=== PATIENT | female | born 1950 | race Caucasian/White ===

== ENCOUNTER 2016-10-22 07:47 | Emergency (ER) | payer BC ==
--- NOTE | 2016-10-22 08:09 | UC ---
Complaint Female HPI - HPI Summary HPI Summary: 65 yo female with the onset 4 days ago of her typical UTI symptoms dysuria(terminal)/urgency and frequency no vag d/c or itch no back or belly pain no fever - History Of Current Complaint Chief Complaint: [facility] Stated Complaint: URINARY COMPLAINT Time Seen by Provider: 10/22/16 07:54 Hx Obtained From: Patient Onset/Duration: Gradual Onset Timing: Lasting Seconds Severity Initially: Mild Severity Currently: None Pain Intensity: 0 - discomfort only with urination Pain Scale Used: 0-10 Numeric Character: Burning Aggravating Factor(s): Urination Related Hx: Similar Episode/Dx as: - UTI - Allergies/Home Medications Allergies/Adverse Reactions: Allergies Allergy/AdvReac Type Severity Reaction Status Date / Time No Known Allergies Allergy Verified 10/22/16 07:52 Home Medications: Home Medications glipiZIDE TAB* [Glucotrol TAB*] 20 mg PO DAILY 10/22/16 [History Confirmed 10/22] metFORMIN* [Glucophage*] 500 mg PO DAILY 10/22/16 [History Confirmed 10/22/16] PMH/Surg Hx/FS Hx/Imm Hx Previously Healthy: Yes - hx pyelo x 1 Endocrine History Of: Reports: Diabetes, Thyroid Disease Cardiovascular History Of: Reports: Hypertension - Surgical History Surgical History: Yes Surgery Procedure, Year, and Place: BILATERAL FOOT REPAIR - Family History Known Family History: Positive: Hypertension - Social History Alcohol Use: Occasionally Substance Use Type: None Smoking Status (MU): Never Smoked Tobacco Review of Systems Constitutional: Negative Skin: Negative Eyes: Negative ENT: Negative Respiratory: Negative Cardiovascular: Negative Gastrointestinal: Negative Genitourinary: Dysuria, Frequency, Urgency Motor: Negative Neurovascular: Negative Musculoskeletal: Negative Neurological: Negative Psychological: Negative All Other Systems Reviewed And Are Negative: Yes Physical Exam Triage Information Reviewed: Yes Appearance: Well-Appearing, No Pain Distress, Well-Nourished Vital Signs: Initial Vital Signs Temp 97.6 F 10/22/16 07:55 Pulse 76 10/22/16 07:55 Resp 18 10/22/16 07:55 BP 99/49 10/22/16 07:55 Pulse Ox 97 10/22/16 07:55 Eye Exam: Normal Eyes: Positive: Conjunctiva Clear ENT: Positive: Hearing grossly normal. Negative: Nasal congestion, Nasal drainage, Trismus, Muffled/hoarse voice Neck: Positive: Supple, Nontender Respiratory: Positive: Lungs clear, Normal breath sounds, No respiratory distress Cardiovascular: Positive: RRR, No Murmur, Pulses Normal Abdomen Description: Positive: Nontender, No Organomegaly, Soft. Negative: CVA Tenderness (R), CVA Tenderness (L) Bowel Sounds: Positive: Present Musculoskeletal: Positive: ROM Intact, No Edema Neurological: Positive: Alert Psychological Exam: Normal Skin Exam: Normal Complaint Female Dx - Differential Dx/Diagnosis Provider Diagnoses: dysuria of uncertain cause. ?UTI Discharge - Discharge Plan Condition: Stable Disposition: HOME Prescriptions: Ciprofloxacin TAB* [Cipro Tab*] 250 mg PO BID #14 tab Patient Education Materials: Dysuria (ED) Referrals: Daniel GALLOWAY,Mehnaz [Primary Care Provider] - 2 Days (if not better) Additional Instructions: if your symptoms persist you may need to be re -examined to rule out a gynecologic cause of your symptoms recheck for fever/worsening symptoms or if not improved in 2 days
[2016-10-22 08:23] VITALS: BP 99/49
== END 2016-10-22 08:27 | disposition home or self-care (01) ==
LOC: UCCORT 07:47
DX: R30.0 Dysuria (principal); E11.9 Type 2 diabetes mellitus without complications
CPT/HCPCS: 87086; 99212; G0463

== ENCOUNTER 2017-02-01 15:48 | Emergency (ER) | payer BC ==
[2017-02-01 17:05] VITALS: BP 127/61
--- NOTE | 2017-02-01 18:35 | UC ---
UC General HPI - HPI Summary HPI Summary: complaint of rash on right side of back that started yesterday rash is painful and burning intermittent headache denies fever but has had chills today has had shingles in the past and it felt the same taking ibuprofen for pain with relief today denies any new medications, foods, detergents, soaps - History of Current Complaint Chief Complaint: [facility] Stated Complaint: SKIN COMPLAINT Time Seen by Provider: 02/01/17 18:28 Hx Obtained From: Patient - Allergy/Home Medications Allergies/Adverse Reactions: Allergies Allergy/AdvReac Type Severity Reaction Status Date / Time No Known Allergies Allergy Verified 02/01/17 17:05 PMH/Surg Hx/FS Hx/Imm Hx Previously Healthy: Yes Endocrine History Of: Reports: Diabetes, Thyroid Disease - hypothyroid Cardiovascular History Of: Reports: Hypertension - Surgical History Surgical History: Yes Surgery Procedure, Year, and Place: BILATERAL FOOT REPAIR - Family History Known Family History: Positive: Hypertension Negative: Cardiac Disease, Diabetes - Social History Occupation: Employed Full-time Lives: With Family Alcohol Use: Rare Substance Use Type: None Smoking Status (MU): Never Smoked Tobacco Review of Systems Constitutional: Chills Skin: Rash Eyes: Negative ENT: Negative Respiratory: Negative Cardiovascular: Negative Gastrointestinal: Negative Genitourinary: Negative Motor: Negative Neurovascular: Negative Musculoskeletal: Negative Neurological: Headache Psychological: Negative All Other Systems Reviewed And Are Negative: Yes Physical Exam Triage Information Reviewed: Yes Appearance: No Pain Distress, Well-Nourished Vital Signs: Initial Vital Signs Temp 97.3 F 02/01/17 16:58 Pulse 65 02/01/17 16:58 Resp 16 02/01/17 16:58 BP 127/61 02/01/17 16:58 Pulse Ox 99 02/01/17 16:58 Vital Signs Reviewed: Yes Eyes: Positive: Conjunctiva Clear ENT: Positive: Pharynx normal, TMs normal Neck: Positive: No Lymphadenopathy Respiratory: Positive: Lungs clear, Normal breath sounds, No respiratory distress Cardiovascular: Positive: RRR, No Murmur, Pulses Normal Abdomen Description: Positive: Nontender, Soft Bowel Sounds: Positive: Present Neurological: Positive: Alert Psychological Exam: Normal Skin: Positive: Other - right side of back - T2 dermatome-scattered vesicles on a erythematous base Course/Dx - Course Course Of Treatment: exam completed. will treat for shingles with Valtrex, NSAIDS. has followup with her PCP on 02/05/17 - Differential Dx - Multi-Symptom Differential Diagnoses: Other - ceelulits, drug rash, shingles Provider Diagnoses: shingles Discharge - Discharge Plan Condition: Stable Disposition: HOME Patient Education Materials: Shingles (ED) Additional Instructions: Please take antiviral as directed Increase fluids and rest Take acetaminophen or ibuprofen for fever or pain Please review your discharge instructions. If your symptoms do not improve please call your primary care provider or return to urgent care. Your blood pressure is pre-hypertensive reading. Please contact your primary care provider within 1 day -4 weeks for further evaluation
== END 2017-02-01 18:49 | disposition home or self-care (01) ==
LOC: UCCORT 15:48
DX: B02.9 Zoster without complications (principal); E03.9 Hypothyroidism, unspecified; I10 Essential (primary) hypertension
CPT/HCPCS: 99212; G0463